=== PATIENT | female | born 1960 | race Two or more races ===

== ENCOUNTER 2016-08-19 12:38 | Inpatient (IN) | payer OTHER ==
[2016-08-19 14:31] VITALS: BMI 36.6
--- NOTE | 2016-08-19 15:41 | HP ---
CIWA Score - CIWA Score Nausea/Vomitin-Int. Nausea w/Dry Heave Muscle Tremors: 4-Moderate,w/Arms Extend Anxiety: 4-Mod. Anxious/Guarded Agitation: 3 Paroxysmal Sweats: 1-Minimal Palms Moist Orientation: 0-Oriented Tacttile Disturbances: 1-Very Mild Itch/Numbness Auditory Disturbances: 0-None Visual Disturbances: 0-None Headache: 2-Mild CIWA-Ar Total Score: 19 Admission ROS BHS - HPI Chief Complaint: DETOX TX FOR ALCOHOL DEPENDENCE Allergies/Adverse Reactions: Allergies Allergy/AdvReac Type Severity Reaction Status Date / Time No Known Allergies Allergy Verified 08/19/16 16:12 History of Present Illness: 56 Y/O H/FEMALE WITH A HX OF ALCOHOL DEPENDENCE ON MMTP SEEKING DETOX TX. Exam Limitations: No Limitations - Ebola screening Have you traveled outside of the country in the last 21 days: No Have you had contact with anyone from an Ebola affected area: No Have you been sick,other than usual withdrawal symptoms: No Do you have a fever: No - Review of Systems Constitutional: Chills, Loss of Appetite, Night Sweats, Changes in sleep EENT: reports: Blurred Vision (WEARS READING GLASSES.), Tearing, Nose Congestion , Dental Problems (NO TEETH...DENTURES(UPPER DENTURE ONLY IN PLACE)) Respiratory: reports: Shortness of Breath (HX ASTHMA), Wheezing Cardiac: reports: No Symptoms Reported GI: reports: Diarrhea, Nausea, Poor Appetite, Poor Fluid Intake, Vomiting, Indigestion, Abdominal cramping : reports: No Symptoms Reported Musculoskeletal: reports: Joint Pain, Muscle Pain, Other (HX RHEUMATOID ARTHRITIS AND TORN RIGHT ROTATOR CUFF.) Integumentary: reports: Bruising (DUE TO IVD INJ ON UPPER/LOWER EXTREMETIES.) Neuro: reports: Headache, Tremors Endocrine: reports: No Symptoms Reported Hematology: reports: No Symptoms Reported Psychiatric: reports: Orientated x3, Anxious, Depressed Other Systems: Reviewed and Negative Patient History - Patient Medical History Hx Anemia: No Hx Asthma: Yes (Pt is on MDI) Hx Chronic Obstructive Pulmonary Disease (COPD): No Hx Cardiac Disorders: No Hx Hypertension: No Hx Hypercholesterolemia: No HX Cerebrovascular Accident: Yes (IN "1990 DUE TO SHOOTING UP COCAINE"..NO RESIDUAL SYMTOMS. ) Hx Seizures: Yes (Etoh related Last in 2011) Hx Diabetes: No Hx Gastrointestinal Disorders: Yes (GERD-NEXIUM IN THE PAST BUT NO CURRENTMEDS) Hx Genitourinary Disorders: No Hx Sexually Transmitted Disorders: No (DENIES) Hx Renal Disease (ESRD): No Hx Human Immunodeficiency Virus (HIV): No (NEGATIVE HX) Hx Hepatitis C: Yes ("TREATED IN 2003..UNDETECTED") Hx Depression: Yes (ON MEDS) Hx Suicide Attempt: Yes (AT 17 Y/O DRANK SOME PILLS;DENIES CURRENT IDEATIONS.) Hx Bipolar Disorder: Yes (ANXIETY AND PTSD) Hx Schizophrenia: No - Patient Surgical History Past Surgical History: Yes Hx Neurologic Surgery: No Hx Cataract Extraction: No Hx Cardiac Surgery: No Hx Lung Surgery: No Hx Breast Surgery: No Hx Breast Biopsy: No Hx Abdominal Surgery: No Hx Appendectomy: Yes (Partial hysterectomy in 1991) Hx Cholecystectomy: Yes (IN 1998) Hx Genitourinary Surgery: No Hx Section: Yes (X 2) Hx Hysterectomy: Yes (1991) Other Surgical History: HYSTRECTOMY-1991 Anesthesia Reaction: No - PPD History Previous Implant?: Yes Documented Results: Negative w/proof Implanted On Prior [facility] Admission?: No Date: 01/12/14 Results: 0 mm PPD to be Administered?: Yes - Reproductive History Patient is a Female of Child Bearing Age (11 -55 yrs old): 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 History Hx Alcohol Use: Yes (BACARDI RUM) Hx Substance Use: Yes (HEROIN) Hx Substance Use Treatment: Yes ([facility]) - Substances Abused RUM Route: Oral Frequency: Daily Amount used: 1/2 PT TO 1 PT Age of first use: 14 Date of Last Use: 08/19/16 Heroin Route: Injection Frequency: Daily Amount used: 6-8 BAGS Age of first use: 26 Date of Last Use: 08/19/16 Family Disease History - Family Disease History Family Disease History: Other: Father (FATHER WAS ETOH DEPENDENT AND ), Sister (ETOH DEPENDENT AND ) Admission Physical Exam BHS - Vital Signs Vital Signs: Vital Signs - 24 hr 08/19/16 13:29 Temperature 97.6 F Pulse Rate 90 Respiratory 20 Rate Blood Pressure 104/74 - Physical General Appearance: Yes: Alcohol on Breath, Intoxicated, Obese, Irritable, Anxious HEENTM: Yes: EOMI, Normocephalic, GENEVIEVE, Pharynx Normal, Photophobia Respiratory: Yes: Chest Non-Tender, Lungs Clear, Normal Breath Sounds, No Respiratory Distress Neck: Yes: Supple, Trachea in good position Breast: Yes: Breast Exam Deferred Cardiology: Yes: Regular Rhythm, Regular Rate, S1, S2 Abdominal: Yes: Normal Bowel Sounds, Non Tender, Soft Genitourinary: Yes: Other (N/C) Back: Yes: Within Normal Limits Musculoskeletal: Yes: full range of Motion, Gait Steady Extremities: Yes: Normal Range of Motion, Non-Tender Neurological: Yes: building equipment operator II-XII NML intact, Fully Oriented, Alert, Motor Strength 5/5 Integumentary: Yes: Dry, Warm, Track Jimenez (LOWER AND UPPER EXTREMITIES WITH BLACK/BLUE ON INJ SITES) Lymphatic: Yes: Within Normal Limits - Diagnostic (1) Arthritis Current Visit: Yes Status: Chronic (2) Asthma Current Visit: Yes Status: Chronic Qualifiers: Asthma severity: mild intermittent Asthma complication type: uncomplicated Qualified Code(s): J45.20 - Mild intermittent asthma, uncomplicated (3) Nicotine dependence Current Visit: Yes Status: Acute Qualifiers: Nicotine product type: cigarettes Substance use status: in withdrawal Qualified Code(s): F17.213 - Nicotine dependence, cigarettes, with withdrawal (4) Obesity Current Visit: Yes Status: Chronic Qualifiers: Obesity type: unspecified obesity type (5) GERD (gastroesophageal reflux disease) Current Visit: Yes Status: Chronic (6) Seizure Current Visit: Yes Status: Suspected Comment: ALCOHOL RELATED (7) History of hepatitis C Current Visit: Yes Status: Chronic (8) Status post CVA Current Visit: Yes Status: Resolved (9) Alcohol dependence with uncomplicated withdrawal Current Visit: Yes Status: Acute (10) Methadone maintenance therapy patient Current Visit: Yes Status: Chronic Cleared for Admission [facility] - Detox or Rehab [facility] Level of Care: Medically Managed Detox Regimen/Protocol: Librium [facility] Breath Alcohol Content Breath Alcohol Content: 0.024 Urine Pregancy Test - Result Urine Test Results: Negative- NO Line Present Urine Drug Screen - Results Drug Screen Negative: No Urine Drug Screen Results: OPI-Opiates, MTD-Methadone, OXY-Oxycodone
[2016-08-19] MEDS ORDERED: ACETAMINOPHEN 325 MG TABLET (FP) PO PRN (16:08)
[2016-08-19] MEDS ORDERED: P-EPHED 60MG/TRIPROLIDI 2.5MG TABLET PO PRN (16:08)
[2016-08-19] MEDS ORDERED: NICOTINE POLACRILEX 4 MG GUM BC PRN (16:08)
[2016-08-19] MEDS ORDERED: diphenhydrAMINE HCL 50 MG CAPSULE PO PRN (16:08)
[2016-08-19] MEDS ORDERED: LOPERAMIDE HCL 2 MG CAPSULE PO PRN (16:08)
[2016-08-19] MEDS ORDERED: MAGNESIUM CITRATE 300 ML BOTTLE PO PRN (16:08)
[2016-08-19] MEDS ORDERED: MAGNESIUM HYDROX 2400MG/30ML ORAL SUSPENSION 30 ML CUP PO PRN (16:08)
[2016-08-19] MEDS ORDERED: guaiFENesin/D-METHORPHAN HB 10 ML UNIT-DOSE CUPS PO PRN (16:08)
[2016-08-19] MEDS ORDERED: IBUPROFEN 400 MG TABLET (FP) PO PRN (16:08)
[2016-08-19] MEDS ORDERED: MENTHOL/PHENOL 1 EACH UD MM PRN (16:08)
[2016-08-19] MEDS ORDERED: MAG HYDROX/AL HYDROX/SIMETH 30 ML UNIT-DOSE CUP PO PRN (16:08)
[2016-08-19] MEDS ORDERED: METHADONE HCL 10 MG TABLET PO ONE (16:54)
[2016-08-19] MEDS ORDERED: chlordiazePOXIDE HCL 25 MG CAPSULE PO ONE (17:00)
[2016-08-19] MEDS ORDERED: METHADONE 40 MG, METHADONE 30 MG PO ONE (17:15)
[2016-08-19] MEDS ORDERED: METHADONE HCL 10 MG TABLET ONE (17:27)
[2016-08-19] MEDS ORDERED: METHADONE HCL 40 MG DISPERSABLE TABLET ONE (17:28)
[2016-08-19] MEDS ORDERED: ALBUTEROL SO4 6.7 GM HFA INHALER IH PRN (17:29)
[2016-08-19] MEDS: chlordiazePOXIDE HCL 25 MG CAPSULE PO SCH ×2 (17:30→22:27)
[2016-08-19] MEDS: NICOTINE 21 MG/24 HOURS TOPICAL PATCH TD SCH ×2 (19:06→19:26)
[2016-08-19 21:07] LABS: MCHC 32.9 g/dl (32.0-36.0); MEAN PLT VOLUME 10.8 fl (7.5-11.1); PLATELET COUNT 173 K/MM3 (134-434); RDW 13.9 % (11.6-15.6); WHITE BLOOD COUNT 9.3 K/mm3 (4.0-10.0)
[2016-08-19 21:29] LABS: ALBUMIN 3.7 g/dl (3.4-5.0); ALK PHOS 85 U/L (45-117); ANION GAP 9 (8-16); BILIRUBIN,TOTAL 0.2 mg/dL (0.2-1.0); CALCIUM 8.8 mg/dL (8.5-10.1); CO2 25 mmol/L (21-32); CREATININE 0.7 mg/dL (0.55-1.02); GLUCOSE,RANDOM 97 mg/dL (74-106); SGPT/ALT 18 U/L (12-78); TOT PROT 7.6 g/dl (6.4-8.2)
[2016-08-19 21:55] LABS: SGOT/AST 11 U/L (15-37)
[2016-08-19] MEDS: THIAMINE HCL 100 MG TABLET (FP) PO SCH (22:27)
[2016-08-19 23:14] LABS: URINE APPEARANCE CLEAR; URINE BILIRUBIN NEGATIVE (NEGATIVE); URINE BLOOD NEGATIVE (NEGATIVE); URINE COLOR LTYELLOW; URINE GLUCOSE (UA) NEGATIVE (NEGATIVE); URINE KETONE NEGATIVE (NEGATIVE); URINE LEUK ESTERASE NEGATIVE (NEGATIVE); URINE NITRITE NEGATIVE (NEGATIVE); URINE PROTEIN NEGATIVE (NEGATIVE); URINE UROBILINOGEN NEGATIVE E.U./dl (0.2-1.0)
[2016-08-20] MEDS ORDERED: METHADONE HCL 40 MG DISPERSABLE TABLET ONE (04:33)
[2016-08-20] MEDS ORDERED: METHADONE HCL 10 MG TABLET ONE (04:33)
[2016-08-20] MEDS: METHADONE 40 MG, METHADONE 30 MG PO SCH (05:08)
[2016-08-20] MEDS: chlordiazePOXIDE HCL 25 MG CAPSULE PO SCH ×4 (05:08→22:26)
[2016-08-20] MEDS ORDERED: METHADONE HCL 10 MG TABLET PO SCH (06:00)
--- NOTE | 2016-08-20 11:03 | PN ---
S CIWA - CIWA Score Nausea/Vomitin-No Nausea/No Vomiting Muscle Tremors: 4-Moderate,w/Arms Extend Anxiety: 3 Agitation: 4-Moderately Restless Paroxysmal Sweats: 3 Orientation: 0-Oriented Tacttile Disturbances: 0-None Auditory Disturbances: 0-None Visual Disturbances: 0-None Headache: 1-Very Mild CIWA-Ar Total Score: 15 BHS Progress Note (SOAP) Subjective: boils to thigh/leg body aches sweats headache weak Objective: 08/20/16 11:03 Vital Signs Temperature 98.1 F 08/20/16 10:06 Pulse Rate 75 08/20/16 10:06 Respiratory Rate 20 08/20/16 10:06 Blood Pressure 106/59 08/20/16 10:06 O2 Sat by Pulse Oximetry (%) Laboratory Tests 08/19/16 08/19/16 08/19/16 13:00 13:00 23:00 WBC 9.3 RBC 4.67 Hgb 14.0 Hct 42.5 MCV 91.0 MCHC 32.9 RDW 13.9 Plt Count 173 MPV 10.8 Sodium 140 Potassium 4.5 Chloride 106 Carbon Dioxide 25 Anion Gap 9 BUN 10 D Creatinine 0.7 Creat Clearance w eGFR > 60 Random Glucose 97 Calcium 8.8 Total Bilirubin 0.2 D AST 11 L ALT 18 Alkaline Phosphatase 85 Total Protein 7.6 Albumin 3.7 Urine Color Ltyellow Urine Appearance Clear Urine pH 5.0 Ur Specific [place] 1.015 Urine Protein Negative Urine Glucose (UA) Negative Urine Ketones Negative Urine Blood Negative Urine Nitrite Negative Urine Bilirubin Negative Urine Urobilinogen Negative Ur Leukocyte Esterase Negative awake/alert ambulating no acute distress Assessment: 08/20/16 11:04 withdrawal sx Plan: continue detox increase fluids bactrim ds daily x 14days bacitracin oint motrin/tylenol prn
[2016-08-20] MEDS: PRENATAL VITAMINS W/ FOLIC ACID TABLET (FP) PO SCH (11:12)
[2016-08-20] MEDS: NICOTINE 21 MG/24 HOURS TOPICAL PATCH TD SCH (11:13)
[2016-08-20] MEDS: SULFAMETHOXAZOLE/TRIMETHOPRIM 800MG/160MG D.S. TABLET PO SCH (11:15)
[2016-08-20] MEDS: BACITRACIN 0.9 GM PACKET TP SCH ×2 (11:15→22:26)
[2016-08-20] MEDS: hydrOXYzine PAMOATE 25 MG CAPSULE (FP) PO PRN (11:15)
[2016-08-20] MEDS: chlordiazePOXIDE HCL 25 MG CAPSULE PO PRN (15:17)
--- NOTE | 2016-08-20 21:35 | CONSULT ---
[facility] - Data Date of interview: 08/20/16 [facility] Identifying data: Readmission to [facility] for this 56 y/o female seeking detox treatment on for alcohol and heroin dependence.Patient is single,a mother of three,domiciled,unemployed and supported on SSI benefits. Substance Abuse History: Smoking Cessation. Smoking history: Current every day smoker. Have you smoked in the past 12 months: Yes. Aproximately how many cigarettes per day: 20. Hx Chewing Tobacco Use: No. Initiated information on smoking cessation: Yes. 'Breaking Loose' booklet given: 08/19/16. - Substance & Tx. History. Hx Alcohol Use: Yes (BACARDI RUM). Hx Substance Use: Yes ( HEROIN). Hx Substance Use Treatment: Yes ([facility]). - Substances Abused. RUM. Route: Oral. Frequency: Daily. Amount used: 1/2 PT TO 1 PT. Age of first use: 14. Date of Last Use: 08/19/16. Heroin. Route: Injection. Frequency: Daily. Amount used: 6-8 BAGS. Age of first use: 26. Date of Last Use: 08/19/16. Confirmed by patient in this interview. Medical History: Bronchial asthma,hepatitis C,GERD,CVA in 1990 and a history of surgeries (cholecystectomy,hysterectomy in 1991,C-sections X 2). Psychiatric History: Patient admits to a history of one psychiatric hospitalization at [facility].Diagnosed with Bipolar Disorder and Anxiety Disorder.Known to [facility] O[facility].Ms Fletcher is currently on methadone maintenance at [facility] program (70 mg/day).She recognizes an antecedent of one suicide attempt via overdose with pills (at age 16). Physical/Sexual Abuse/Trauma History: Not discussed in this interview. Additional Comment: Urine Drug Screen Results: OPI-Opiates, MTD-Methadone, OXY- Oxycodone.Noted. Mental Status Exam - Mental Status Exam Alert and Oriented to: Time, Place, Person Cognitive Function: Good (short stature,overweight) Patient Appearance: Well Groomed Mood: Apprehensive (mildly apprehensive about having her medications prescribed on time), Hopeful, Euthymic Patient Behavior: Appropriate, Cooperative (well-mannered) Speech Pattern: Clear, Appropriate (fluent in macedonian) Voice Loudness: Normal Thought Process: Intact, Goal Oriented Thought Disorder: Not Present Hallucinations: Denies Suicidal Ideation: Denies Homicidal Ideation: Denies Insight/Judgement: Fair Sleep: Poorly, Difficulty falling asleep Appetite: Good Muscle strength/Tone: Normal Gait/Station: Normal (ambulatory,steady gait) Psychiatric Findings - Problem List ([place] 1, 2,3) (1) Alcohol dependence with uncomplicated withdrawal Current Visit: Yes Status: Acute (2) Opioid dependence on agonist therapy Current Visit: Yes Status: Acute (3) Nicotine dependence Current Visit: Yes Status: Acute Qualifiers: Nicotine product type: cigarettes Substance use status: in withdrawal Qualified Code(s): F17.213 - Nicotine dependence, cigarettes, with withdrawal (4) Bipolar disorder Current Visit: Yes Status: Chronic Comment: Self-report. (5) Arthritis Current Visit: Yes Status: Chronic (6) Asthma Current Visit: Yes Status: Chronic Qualifiers: Asthma severity: mild intermittent Asthma complication type: uncomplicated Qualified Code(s): J45.20 - Mild intermittent asthma, uncomplicated (7) History of hepatitis C Current Visit: Yes Status: Chronic (8) Obesity Current Visit: Yes Status: Chronic Qualifiers: Obesity type: unspecified obesity type (9) GERD (gastroesophageal reflux disease) Current Visit: Yes Status: Chronic - Initial Treatment Plan Initial Treatment Plan: Psychoeducation.Detoxification in progress.Medications : seroquel 200 mg po hs (dose is intentionally reduced as a caution against oversedation).Titration to 300 mg will follow as indicated.Discussed in detail with the patient.Side effects/benefits reviwed bonih patient as well.Agreement given (verbally).Observation.
[2016-08-20] MEDS: THIAMINE HCL 100 MG TABLET (FP) PO SCH (22:26)
[2016-08-20] MEDS: QUEtiapine FUMARATE 100 MG TABLET (FP) PO SCH (22:28)
[2016-08-21] MEDS: chlordiazePOXIDE HCL 25 MG CAPSULE PO PRN (03:09)
[2016-08-21] MEDS: hydrOXYzine PAMOATE 25 MG CAPSULE (FP) PO PRN (03:10)
[2016-08-21] MEDS ORDERED: METHADONE HCL 40 MG DISPERSABLE TABLET ONE (05:00)
[2016-08-21] MEDS ORDERED: METHADONE HCL 10 MG TABLET ONE (05:00)
[2016-08-21] MEDS: METHADONE 40 MG, METHADONE 30 MG PO SCH (06:37)
[2016-08-21] MEDS: chlordiazePOXIDE HCL 25 MG CAPSULE PO SCH ×2 (06:37→10:35)
--- NOTE | 2016-08-21 09:41 | CONSULT ---
[facility] Psychiatric Consult - Data Date of interview: 08/21/16 Admission source: [facility] Identifying data: This is 56 yeras old female with history of Bipolar disordwer , [id number] psychiatric hospitalization hbistory , [id number] with: Alcoghol, Opiopids, Cannabis anjd Nicotine Substance Abuse History: - Smoking Cessation. Smoking history: Current every day smoker. Have you smoked in the past 12 months: Yes. Aproximately how many cigarettes per day: 20. Hx Chewing Tobacco Use: No. Initiated information on smoking cessation: Yes. 'Breaking Loose' booklet given: 08/19/16. - Substance & Tx. History. Hx Alcohol Use: Yes (BACARDI RUM). Hx Substance Use: Yes ( HEROIN). Hx Substance Use Treatment: Yes ([facility]). - Substances Abused. RUM. Route: Oral. Frequency: Daily. Amount used: 1/2 PT TO 1 PT. Age of first use: 14. Date of Last Use: 08/19/16. Heroin. Route: Injection. Frequency: Daily. Amount used: 6-8 BAGS. Age of first use: 26. Date of Last Use: 08/19/16 Medical History: CVA History, Arthritis history, Asthma, MMTP history, GERD, HepC+, Obesity, Seizure history Psychiatric History: Patient reports to carry Bipolar disorder with unknown osychiatric hospitalization history, PTSD, reports taking prior to admission: Ambien 10mg pop qhs. Seroquel 200mg po qhs Physical/Sexual Abuse/Trauma History: Denies Additional Comment: Ambien 10mg pop qhs. Seroquel 200mg po qhs Mental Status Exam - Mental Status Exam Alert and Oriented to: Person Cognitive Function: Fair Patient Appearance: Unkempt Mood: Anxious Affect: Appropriate Patient Behavior: Cooperative Speech Pattern: Appropriate Voice Loudness: Normal Thought Process: Goal Oriented Thought Disorder: Being Controlled Hallucinations: Denies Suicidal Ideation: Denies Homicidal Ideation: Denies Insight/Judgement: Fair Sleep: Difficulty falling asleep Appetite: Weight gain Muscle strength/Tone: Normal Gait/Station: Normal Additional Comments: Ambien 10mg pop qhs. Seroquel 200mg po qhs Psychiatric Findings - Problem List ([place] 1, 2,3) (1) Alcohol dependence with uncomplicated withdrawal Current Visit: Yes Status: Acute (2) Nicotine dependence Current Visit: Yes Status: Acute Qualifiers: Nicotine product type: cigarettes Substance use status: in withdrawal Qualified Code(s): F17.213 - Nicotine dependence, cigarettes, with withdrawal (3) Methadone maintenance therapy patient Current Visit: Yes Status: Chronic (4) Obesity Current Visit: Yes Status: Chronic Qualifiers: Obesity type: unspecified obesity type (5) Opiate dependence Current Visit: No Status: Acute (6) Bipolar disorder Current Visit: No Status: Chronic (7) Cannabis dependence Current Visit: No Status: Chronic (8) PTSD (post-traumatic stress disorder) Current Visit: No Status: Chronic - Initial Treatment Plan Initial Treatment Plan: Ambien 10mg pop qhs. Seroquel 200mg po qhs
[2016-08-21] MEDS: PRENATAL VITAMINS W/ FOLIC ACID TABLET (FP) PO SCH (10:35)
[2016-08-21] MEDS: BACITRACIN 0.9 GM PACKET TP SCH ×3 (10:35→22:35)
[2016-08-21] MEDS: SULFAMETHOXAZOLE/TRIMETHOPRIM 800MG/160MG D.S. TABLET PO SCH (10:35)
[2016-08-21] MEDS: NICOTINE 21 MG/24 HOURS TOPICAL PATCH TD SCH (10:36)
--- NOTE | 2016-08-21 11:47 | PN ---
S CIWA - CIWA Score Nausea/Vomitin Muscle Tremors: 2 Anxiety: 3 Agitation: 3 Paroxysmal Sweats: 3 Orientation: 0-Oriented Tacttile Disturbances: 1-Very Mild Itch/Numbness Auditory Disturbances: 0-None Visual Disturbances: 0-None Headache: 0-None Present CIWA-Ar Total Score: 14 S Progress Note (SOAP) Subjective: interrupted sleep, sweats wants to be d/c'ed in am to go to court Objective: 08/21/16 11:44 Vital Signs Temperature 97.7 F 08/21/16 10:03 Pulse Rate 81 08/21/16 10:03 Respiratory Rate 18 08/21/16 10:03 Blood Pressure 106/67 08/21/16 10:03 O2 Sat by Pulse Oximetry (%) Vital Signs Temp 97.7 F 08/21/16 10:03 Pulse 81 08/21/16 10:03 Resp 18 08/21/16 10:03 BP 106/67 08/21/16 10:03 Pulse Ox Laboratory Tests 08/19/16 08/19/16 08/19/16 13:00 13:00 13:00 WBC 9.3 RBC 4.67 Hgb 14.0 Hct 42.5 MCV 91.0 MCHC 32.9 RDW 13.9 Plt Count 173 MPV 10.8 Sodium 140 Potassium 4.5 Chloride 106 Carbon Dioxide 25 Anion Gap 9 BUN 10 D Creatinine 0.7 Creat Clearance w eGFR > 60 Random Glucose 97 Calcium 8.8 Total Bilirubin 0.2 D AST 11 L ALT 18 Alkaline Phosphatase 85 Total Protein 7.6 Albumin 3.7 Urine Color Urine Appearance Urine pH Ur Specific [place] Urine Protein Urine Glucose (UA) Urine Ketones Urine Blood Urine Nitrite Urine Bilirubin Urine Urobilinogen Ur Leukocyte Esterase RPR Titer Nonreactive 08/19/16 23:00 WBC RBC Hgb Hct MCV MCHC RDW Plt Count MPV Sodium Potassium Chloride Carbon Dioxide Anion Gap BUN Creatinine Creat Clearance w eGFR Random Glucose Calcium Total Bilirubin AST ALT Alkaline Phosphatase Total Protein Albumin Urine Color Ltyellow Urine Appearance Clear Urine pH 5.0 Ur Specific [place] 1.015 Urine Protein Negative Urine Glucose (UA) Negative Urine Ketones Negative Urine Blood Negative Urine Nitrite Negative Urine Bilirubin Negative Urine Urobilinogen Negative Ur Leukocyte Esterase Negative RPR Titer pt aox3 in nad ambulating Assessment: 08/21/16 11:45 withdrawal sx's Plan: cont. detox increase fluids d/c in am
--- NOTE | 2016-08-21 13:19 | EKG ---
Test Reason : Blood Pressure : / mmHG Vent. Rate : 077 BPM Atrial Rate : 077 BPM P-R Int : 148 ms QRS Dur : 072 ms QT Int : 386 ms P-R-T Axes : 075 054 083 degrees QTc Int : 436 ms NORMAL SINUS RHYTHM LOW VOLTAGE QRS BORDERLINE ECG NO PREVIOUS ECGS AVAILABLE Confirmed by ANNETTA CLARK, RONNIE ([id number]) on 08/21/2016 1:18:53 PM Referred By: Confirmed By:RONNIE LITTLEJOHN MD
[2016-08-21] MEDS: chlordiazePOXIDE 5 MG CAPSULE PO SCH ×3 (17:31→23:23)
[2016-08-21] MEDS ORDERED: ZOLPIDEM TARTRATE 10 MG TABLET (PARK CARE ONLY) PO PRN (22:00)
[2016-08-21] MEDS: THIAMINE HCL 100 MG TABLET (FP) PO SCH ×2 (22:28→22:55)
[2016-08-21] MEDS: QUEtiapine FUMARATE 100 MG TABLET (FP) PO SCH ×2 (22:29→22:40)
[2016-08-22] MEDS ORDERED: METHADONE HCL 10 MG TABLET ONE (04:32)
[2016-08-22] MEDS ORDERED: METHADONE HCL 40 MG DISPERSABLE TABLET ONE (04:32)
[2016-08-22] MEDS: chlordiazePOXIDE 5 MG CAPSULE PO SCH (06:09)
[2016-08-22] MEDS: METHADONE 40 MG, METHADONE 30 MG PO SCH (06:09)
--- NOTE | 2016-08-22 09:15 | DS ---
[facility] Detox Discharge Summary Admission Date: 08/19/16 Discharge Date: 08/22/16 - History Present History: Alcohol Dependence, MMTP - Physical Exam Results Vital Signs: Vital Signs Temperature 97.2 F L 08/22/16 06:55 Pulse Rate 76 08/22/16 06:55 Respiratory Rate 18 08/22/16 06:55 Blood Pressure 109/60 08/22/16 06:55 O2 Sat by Pulse Oximetry (%) - Treatment Hospital Course: Detox Protocol Followed, Detoxed Safely, Responded well, Discharged Condition Good, Rehab Referral Accepted - Medication Discharge Medications: Ambulatory Orders Quetiapine Fumarate [Seroquel -] 300 mg PO HS 08/19/16 Zolpidem Tartrate [Ambien] 10 mg PO HS 08/19/16 Quetiapine Fumarate [Seroquel -] 200 mg PO HS #30 tab 08/21/16 Zolpidem Tartrate [Ambien] 0 mg PO HS #14 tablet MDD 10 08/21/16 - Diagnosis (1) Alcohol dependence with uncomplicated withdrawal Current Visit: Yes Status: Chronic (2) Nicotine dependence Current Visit: Yes Status: Chronic Qualifiers: Nicotine product type: cigarettes Substance use status: uncomplicated Qualified Code(s): F17.210 - Nicotine dependence, cigarettes, uncomplicated (3) Opioid dependence on agonist therapy Current Visit: Yes Status: Acute (4) Arthritis Current Visit: Yes Status: Chronic (5) Asthma Current Visit: Yes Status: Chronic Qualifiers: Asthma severity: mild intermittent Asthma complication type: uncomplicated Qualified Code(s): J45.20 - Mild intermittent asthma, uncomplicated (6) Bipolar disorder Current Visit: Yes Status: Chronic (7) GERD (gastroesophageal reflux disease) Current Visit: Yes Status: Chronic Qualifiers: Esophagitis presence: without esophagitis Qualified Code(s): K21.9 - Gastro-esophageal reflux disease without esophagitis (8) History of hepatitis C Current Visit: Yes Status: Chronic (9) Methadone maintenance therapy patient Current Visit: Yes Status: Chronic (10) Obesity Current Visit: Yes Status: Chronic Qualifiers: Obesity type: unspecified obesity type (11) Seizure Current Visit: Yes Status: Suspected (12) Status post CVA Current Visit: Yes Status: Resolved (13) Opiate dependence Current Visit: Yes Status: Chronic Qualifiers: Substance use status: uncomplicated Qualified Code(s): F11.20 - Opioid dependence, uncomplicated (14) Cannabis dependence Current Visit: Yes Status: Chronic (15) PTSD (post-traumatic stress disorder) Current Visit: No Status: Chronic - AMA Did Patient Leave Against Medical Advice: No
[2016-08-22 09:49] VITALS: BP 99/62; PULSE 97; TEMP 98.2
[2016-08-22] MEDS: PRENATAL VITAMINS W/ FOLIC ACID TABLET (FP) PO SCH (10:02)
[2016-08-22] MEDS: BACITRACIN 0.9 GM PACKET TP SCH (10:02)
[2016-08-22] MEDS: SULFAMETHOXAZOLE/TRIMETHOPRIM 800MG/160MG D.S. TABLET PO SCH (10:02)
[2016-08-22] MEDS ORDERED: chlordiazePOXIDE HCL 10 MG CAPSULE PO SCH (17:00)
== END 2016-08-22 10:22 | disposition home or self-care (01) | DRG 773 ==
LOC: YASAS 12:38 → Y6N 16:36
PROVIDERS: ADMIT Internal Medicine Addiction Medicine; ATTEND Internal Medicine Addiction Medicine
PROC: HZ2ZZZZ Detoxification Services for Substance Abuse Treatment (ICD-10-PCS; principal; 2016-08-22)
DX: F11.20 Opioid dependence, uncomplicated (principal); F10.230 Alcohol dependence with withdrawal, uncomplicated; F12.20 Cannabis dependence, uncomplicated; F17.210 Nicotine dependence, cigarettes, uncomplicated; F31.9 Bipolar disorder, unspecified; F43.10 Post-traumatic stress disorder, unspecified; G40.909 Epilepsy, unspecified, not intractable, without status epilepticus; K21.9 Gastro-esophageal reflux disease without esophagitis; B18.2 Chronic viral hepatitis C; M12.9 Arthropathy, unspecified; E66.09 Other obesity due to excess calories; Z68.36 Body mass index [BMI] 36.0-36.9, adult; Z86.73 Personal history of transient ischemic attack (TIA), and cerebral infarction without residual deficits
CPT/HCPCS: 36415; 80053; 81003; 85027; 86593; 93005; 93010